=== PATIENT | male | born 1965 | race American Indian/Alaskan Native ===

== ENCOUNTER 2018-10-13 12:15 | Emergency (ER) | payer MEDICAID, OTHER ==
[2018-10-13] MEDS ORDERED: PEPCID IV ONE ×2 (12:31→12:33)
[2018-10-13] MEDS ORDERED: SOLU-Medrol IV ONE (12:31)
[2018-10-13] MEDS ORDERED: ADRENALINE P/F SUB-Q ONE (12:31)
[2018-10-13] MEDS ORDERED: NACL 0.9% 1000 ML 1,000 ML IV ONE (12:32)
[2018-10-13] MEDS ORDERED: SOLU-Medrol ONE (12:33)
[2018-10-13] MEDS ORDERED: ADRENALINE P/F ONE (12:33)
--- NOTE | 2018-10-13 12:40 | Emergency Department Report ---
HPI - General Chief Complaint: Allergic Reaction Time Seen by Provider: 10/13/18 12:22 - HPI HPI: 53-year-old -[place] male presents to the emergency department with a complaint of allergic reaction after being stung by a bee to his left leg about one hour prior to arrival. He complains of some lip swelling, chest discomfort when breathing and generalized itching. He does not have any known previous medical conditions or previous allergies to any medications, environment, food. He took 50 mg of Benadryl prior to arrival without much relief. ED Past Medical Hx - Past Medical History Previous Medical History?: No - Surgical History Past Surgical History?: No - Medications Home Medications: Home Medications Medication Instructions Recorded Confirmed Last Taken Type EPINEPHrine [Epipen 2-Joesph] 0.3 mg IM ONCE PRN #1 pen 10/13/18 Unknown Rx Famotidine [Pepcid] 20 mg PO BID #6 tablet 10/13/18 Unknown Rx diphenhydrAMINE [Benadryl CAP] 25 mg PO Q8HR PRN #9 capsule 10/13/18 Unknown Rx predniSONE [Deltasone] 20 mg PO BID #6 tab 10/13/18 Unknown Rx ED Review of Systems ROS: Stated complaint: BEE STING Other details as noted in HPI Comment: All other systems reviewed and negative Constitutional: denies: chills, fever Eyes: denies: eye pain, vision change ENT: other (lip swelling). denies: ear pain, throat pain Respiratory: denies: cough, wheezing Cardiovascular: chest pain (with respirations) Gastrointestinal: denies: abdominal pain, vomiting Genitourinary: denies: dysuria, discharge Musculoskeletal: denies: back pain, arthralgia Skin: pruritus, other (hives) Neurological: denies: headache, weakness Physical Exam - Physical Exam Physical Exam: GENERAL: The patient is well-developed well-nourished. HENT: Normocephalic. Atraumatic. Patient has moist mucous membranes. No drooling or trismus. Oropharynx is clear. EYES: Extraocular motions are intact. Pupils equal reactive to light bilaterally. NECK: Supple. Trachea is midline. CHEST/LUNGS: Clear to auscultation. There is no respiratory distress noted. HEART/CARDIOVASCULAR: Regular. There is no tachycardia. There is no murmur. ABDOMEN: Abdomen is soft, nontender. Patient has normal bowel sounds. There is no abdominal distention. SKIN: Skin is warm and dry. There is some urticaria seen. NEURO: The patient is awake, alert, and oriented. The patient is cooperative. The patient has no focal neurologic deficits. The patient has normal speech. MUSCULOSKELETAL: There is no tenderness or deformity. There is no limitation range of motion. There is no evidence of acute injury. ED Medical Decision Making - Lab Data Result diagrams: 10/13/18 12:58 10/13/18 12:58 - EKG Data -: EKG Interpreted by Me EKG shows normal: sinus rhythm, axis, intervals, QRS complexes (nonspecific intraventricular conduction delay), ST-T waves (nonspecific ST-T waves) Rate: bradycardia (55 bpm) - EKG Data When compared to previous EKG there are: previous EKG unavailable Interpretation: other (mild sinus bradycardia, nonspecific intraventricular conduction delay, nonspecific ST-T waves) - Medical Decision Making This patient presents after being stung by a bee in his left leg with a complaint of some urticaria and itching and swelling of the lips. I could not appreciate any significant angioedema. His oropharynx is clear. No drooling or trismus. No signs of any swelling of the tongue or throat. No difficulty swallowing. No signs of shortness of breath. However the patient did complaint of some chest discomfort with respirations. A chest x-ray was done that does not show any pneumothorax, pleural effusions, pneumonia or any other acute process. EKG did not show any signs of ST elevation [place] or dysrhythmia. Patient had negative labs including CBC, BMP and troponin, except for a slightly elevated potassium level of 5.4. He was given Solu-Medrol, Pepcid and some Benadryl for the allergic reaction. He was reevaluated multiple times at multiple hours and is feeling greatly improved. Vital signs stable throughout his ED course. Prior to discharge, the patient was given some Kayexalate for his hyperkalemia. He was given some referrals for primary care. He will return to the ER with any worsening of his symptoms or any acute distress. - Differential Diagnosis allergic reaction, angioedema, anaphylaxis, dermatitis Critical Care Time: No Critical care attestation.: If time is entered above; I have spent that time in minutes in the direct care of this critically ill patient, excluding procedure time. ED Disposition Clinical Impression: Bee sting allergy, Urticaria, Lip swelling, Hyperkalemia Disposition: - TO HOME OR SELFCARE Is pt being admited?: No Condition: Stable Instructions: Insect Bite or Sting (ED), Hyperkalemia (ED), Angioedema (ED) Additional Instructions: Follow up with your primary care provider in the next few days. Return to the emergency department with any return or worsening of your symptoms or any acute distress. I am prescribing you an epi-pen for if you develop any signs/symptoms or angioedema or anaphylaxis, such as: swelling of the tongue or throat, difficulty swallowing, shortness of breath, chest pain. If you have to use the epi-pen, call 911 immediately afterwards. Prescriptions: diphenhydrAMINE [Benadryl CAP] 25 mg PO Q8HR PRN #9 capsule PRN Reason: Allergic Reaction predniSONE [Deltasone] 20 mg PO BID #6 tab EPINEPHrine [Epipen 2-Joesph] 0.3 mg IM ONCE PRN #1 pen PRN Reason: Anaphylaxis Famotidine [Pepcid] 20 mg PO BID #6 tablet Referrals: [facility] [Outside] - 2-3 Days JUNO CHEUNG DO [Staff Physician] - 2-3 Days
--- NOTE | 2018-10-13 12:54 | XRay Report ---
CHEST 2 VIEWS INDICATION: Chest pain, allergic reaction to bee sting.. COMPARISON: FINDINGS: Support devices: None. Heart: Within normal limits. Lungs/pleura: No acute air space or interstitial disease. No pneumothorax. Additional findings: None. IMPRESSION: Normal chest x-ray. Signer Name: Marshall Valerio Jr, MD Signed: 10/13/2018 12:50 PM Workstation Name: [id number]
[2018-10-13 13:09] LABS: Basophils % (Auto) 0.5 % (0.0-1.8); Eosinophils # (Auto) 0.1 K/mm3 (0.0-0.4); Eosinophils % (Auto) 1.6 % (0.0-4.3); Hemoglobin 15.1 gm/dl (11.8-15.2); Lymphocytes % (Auto) 33.5 % (13.4-35.0); Mean Corpuscular HGB Conc 33 % (32-34); Mean Corpuscular Volume 92 fl (84-94); Monocytes # (Auto) 0.4 K/mm3 (0.0-0.8); Monocytes % (Auto) 7.3 % (0.0-7.3); Platelet Count 244 K/mm3 (140-440); Red Cell Distribution Width 14.2 % (13.2-15.2)
[2018-10-13 13:29] LABS: BUN/Creatinine Ratio 13; Blood Urea Nitrogen 14 mg/dL (9-20); Calcium 8.7 mg/dL (8.4-10.2); Hemolysis Index 192
[2018-10-13 14:02] VITALS: BP 147/91
[2018-10-13] MEDS ORDERED: KIONEX PO ONE (15:06)
== END 2018-10-13 15:26 | disposition home or self-care (01) ==
LOC: ED 12:15
DX: L50.9 Urticaria, unspecified (principal); R22.0 Localized swelling, mass and lump, head; E87.5 Hyperkalemia; T63.441A Toxic effect of venom of bees, accidental (unintentional), initial encounter; Y92.89 Other specified places as the place of occurrence of the external cause; Z79.899 Other long term (current) drug therapy
CPT/HCPCS: 36415; 71046; 80048; 84484; 85025; 93005; 93010; 96372; 96374; 96375; 99284; J0171; J2930; J7030